=== PATIENT | female | born 1965 | race Caucasian/White ===

== ENCOUNTER 2018-03-02 07:44 | Day surgery (SDC) | payer OTHER ==
[2018-03-01 09:25] VITALS: BMI 25.0
[~2018-03-02 07:44] MED LIST: BUPIVACAINE HCL/PF 0.5% (5MG/ML) 10 ML VIAL IJ ONE; LIDOCAINE HCL 1%, 10 MG/ML (20ML VIAL) NR ONE
[2018-03-02] MEDS ORDERED: BUPIVACAINE HCL/PF 0.5% (5MG/ML) 10 ML VIAL ONE (08:55)
[2018-03-02] MEDS ORDERED: MIDAZOLAM HCL 2 MG/2 ML SINGLE DOSE VIAL ONE (09:07)
[2018-03-02] MEDS ORDERED: PROPOFOL 20 ML ONE ×3 (09:07)
[2018-03-02] MEDS ORDERED: ceFAZolin SODIUM 1 GM VIAL IVPB ONE (09:28)
[2018-03-02] MEDS ORDERED: LIDOCAINE HCL 1%, 10 MG/ML (20ML VIAL) INF ONE (09:41)
[2018-03-02] MEDS ORDERED: LIDOCAINE HCL 1%, 10 MG/ML (20ML VIAL) NR ONE (09:41)
[2018-03-02] MEDS ORDERED: BUPIVACAINE HCL/PF 0.5% (5MG/ML) 10 ML VIAL IJ ONE ×2 (09:41)
[2018-03-02] MEDS ORDERED: KETOROLAC TROMETHAMINE 30 MG/1 ML VIAL ONE (09:49)
[2018-03-02] MEDS ORDERED: ceFAZolin SODIUM 1 GM VIAL ONE (09:49)
--- NOTE | 2018-03-02 10:07 | OP ---
Operative Note - Note: Operative Date: 03/02/18 Pre-Operative Diagnosis: right Dequervain's Operation: right Dequervain's release, tendon sheath excision Post-Operative Diagnosis: Same as Pre-op Surgeon: Elver Wade Anesthesiologist/METALLURGICAL SPECIALIST: Gurmeet Macias Anesthesia: Local, MAC Specimens Removed: tendon sheath Estimated Blood Loss (mls): 0 Drains, Volume Out (mls): 0 Blood Volume Replaced (mls): 0 Fluid Volume Replaced (mls): 500 Operative Report Dictated: Yes
--- NOTE | 2018-03-02 11:13 | SPEC ---
DATE OF OPERATION: 03/02/2018 PREOPERATIVE DIAGNOSIS: Right De Quervains tenosynovitis. POSTOPERATIVE DIAGNOSIS: Right De Quervains tenosynovitis. PROCEDURE: Right De Quervains release and tendon sheath excision. SURGEON: Elver Wade M.D. AMBULANCE DRIVER: None. ANESTHESIA: MAC with local injection of 8 mL of 0.5% Marcaine and 1% Lidocaine mix. ANESTHESIOLOGIST: Gurmeet Macias MD DRAINS: None. COMPLICATIONS: None. BLOOD LOSS: None. BLOOD GIVEN: None. SPECIMEN: Tendon sheath, right wrist. FLUID REPLACEMENT: 500 mL. INDICATIONS: This patient is a 52-year-old female with a preoperative diagnosis of severe recurrent right De Quervain tenosynovitis. After understanding the potential risks, complications, alternatives and benefits of surgery versus nonsurgical treatment, the patient elected to undergo this procedure. PROCEDURE: Patient was brought to the operating room, peripheral IV placed, IV sedation given. One gram of IV Ancef was given. MAC anesthesia was induced. The tourniquet was applied to the right arm. The entire care was done under 3.8 loop magnification. The right upper extremity was prepped and draped in a sterile fashion. A longitudinal incision was marked out with a marking pen. A mix of 8 mL of 0.5% Marcaine, 1% Lidocaine were injected in and around the surgical area. The right upper extremity was then elevated, exsanguinated with an Esmarch bandage and the tourniquet inflated to 250 mmHg. A No. 15 scalpel blade was utilized to make a longitudinal incision. Subcutaneous hemostasis was achieved with a bipolar cautery. Dissection was done with a Littler scissors down to the first dorsal wrist compartment. Great care was taken to directly visualize and preserve all crossing sensory branches of the sensory nerve. Under direct visualization, the first dorsal wrist compartment was visualized and it was freed up from some adhesions with a [place] elevator. Next, a fresh No. 15 scalpel blade was utilized to open up the first dorsal wrist compartment, starting proximally and going distally both with the No. 15 scalpel blade and also with a Littler scissors. The anatomy was seen to have multiple slips of the abductor pollicis longus and the extensor pollicis brevis was in its own tendon tunnel. This was also released and the wall between the two excised. The roof of the tunnel was excised. This was all passed off the field as specimen. The volar lip of the first dorsal wrist compartment was preserved to prevent volar subluxation. The release was completed both distally and proximally in both compartments. I was able to bring out all slips through the wound with a Ragnell retractor and there were no obvious points of compression. The area was copiously irrigated and washed out, again explored and I didn't see any other abnormal tissue and therefore closure was begun. Undyed 4-0 Vicryl was used to close the deep dermal layer. Final skin reapproximation was done with a running subcuticular 4-0 Biosyn stitch. The area was then washed and dried, covered with Steri-Strips, 4 x 4's, fluffs between the fingers, Webril and Coban used to make a thumb spica Coban splint. The tourniquet was taken down after a total tourniquet time of 15 minutes. There were no complications during the case. The patient tolerated the procedure quite well and was brought to ambulatory recovery room in stable condition. Samantha [id number]
[2018-03-02 11:15] VITALS: BP 118/69; PULSE 89; TEMP 98.4
--- NOTE | 2018-03-03 17:21 | PATH ---
Surgical Pathology Report Patient Name: KELSEY ANDERSON [facility]. Rec. #: [id number] /Age/Gender: 1965 (Age: 52) / F Account: [id number] Location: [facility] Taken: 03/02/2018 Received: 03/02/2018 Reported: 03/03/2018 Physicians: Elver Wade M.D. Specimen(s) Received TENDON SHEATH RIGHT WRIST Clinical History Right Dequervain's Final Diagnosis WRIST, RIGHT, TENDON SHEATH, DE QUARVAIN'S RELEASE: BENIGN DENSE FIBROCONNECTIVE TISSUE. Electronically Signed Madie Swanson M.D. Gross Description Received in formalin labeled "tendon sheath right wrist," is a 1.2 x 0.8 x 0.2 cm aggregate of williamson soft tissue fragments. The specimen is entirely submitted in one cassette. DL/03/02/2018 saudi03/02/2018
== END 2018-03-02 11:15 | disposition home or self-care (01) ==
LOC: JASU-SURG 07:44
PROVIDERS: ATTEND Orthopaedic Surgery
PROC: 0LB50ZZ Excision of Right Lower Arm and Wrist Tendon, Open Approach (ICD-10-PCS; 2018-03-02)
PROC: 0LN50ZZ Release Right Lower Arm and Wrist Tendon, Open Approach (ICD-10-PCS; principal; 2018-03-02 09:00)
DX: M65.4 Radial styloid tenosynovitis [de Quervain] (principal)
CPT/HCPCS: 82962; 88304-TC

== ENCOUNTER 2021-07-23 05:50 | Day surgery (SDC) | payer OTHER ==
[2021-07-17 14:28] VITALS: BMI 23.5
[2021-07-23] MEDS ORDERED: MIDAZOLAM HCL 2 MG/2 ML SINGLE DOSE VIAL ONE (07:16)
[2021-07-23] MEDS ORDERED: PROPOFOL 20 ML ONE (07:16)
[2021-07-23] MEDS ORDERED: BUPIVACAINE HCL/PF 0.25% (2.5MG/ML) 10 ML VIAL ONE (07:22)
[2021-07-23] MEDS ORDERED: LIDOCAINE HCL 2% (20ML MULTI-DOSE VIAL) ONE (07:22)
[2021-07-23] MEDS ORDERED: ONDANSETRON 4 MG/2 ML VIAL ONE (08:09)
[2021-07-23 08:23] VITALS: TEMP 97
[2021-07-23 08:51] VITALS: BP 136/78; PULSE 86
[2021-07-23] MEDS ORDERED: SUCCINYLCHOLINE CHLORIDE 200 MG/10 ML SYRINGE ONE (09:15)
== END 2021-07-23 09:05 | disposition home or self-care (01) ==
LOC: FASU 05:50
PROVIDERS: ATTEND Orthopaedic Surgery Hand Surgery
PROC: 0LN60ZZ Release Left Lower Arm and Wrist Tendon, Open Approach (ICD-10-PCS; principal; 2021-07-23 07:50)
DX: M65.4 Radial styloid tenosynovitis [de Quervain] (principal)
CPT/HCPCS: 82962

== ENCOUNTER 2022-09-12 15:03 | Emergency (ER) | payer OTHER ==
[2022-09-12 15:20] VITALS: RESP 19; BMI 25.0
[2022-09-12] MEDS ORDERED: SODIUM CHLORIDE 0.9% 500 ML INFUS.BAG IV ONE (15:53)
[2022-09-12] MEDS ORDERED: METOCLOPRAMIDE HCL INJECTION 10 MG/2 ML VIAL IVPB ONE (15:53)
[2022-09-12] MEDS ORDERED: METOCLOPRAMIDE HCL INJECTION 10 MG/2 ML VIAL ONE (16:15)
[2022-09-12 17:04] LABS: BASO % 0.5 % (0-2.0); EOS % 1.1 % (0-4.5); HEMATOCRIT 38.5 % (32.4-45.2); HEMOGLOBIN 13.4 GM/dL (10.7-15.3); LYMPH % 25.9 % (8-40); MCH 29.4 pg (25.7-33.7); MCHC 34.8 g/dl (32.0-36.0); MEAN CELL VOLUME 84.5 fl (80-96); MEAN PLT VOLUME 9.8 fl (7.5-11.1); NEUT % 66.5 % (42.8-82.8); PLATELET COUNT 178 10^3/uL (134-434); RBC 4.56 M/mm3 (3.60-5.2); RDW 14.2 % (11.6-15.6); WHITE BLOOD COUNT 5.7 K/mm3 (4.0-10.0)
[2022-09-12 17:22] LABS: ALBUMIN 3.7 g/dl (3.4-5.0); BLOOD UREA NITROGEN 20.2 mg/dL (7-18); CALCIUM 9.2 mg/dL (8.5-10.1); MAGNESIUM 2.1 mg/dL (1.8-2.4)
[2022-09-12 17:27] LABS: BILIRUBIN,TOTAL 0.2 mg/dL (0.2-1)
[2022-09-12 19:59] VITALS: BP 127/84; PULSE 83; TEMP 98.1
== END 2022-09-12 20:10 | disposition home or self-care (01) ==
LOC: JER 15:03
PROC: 3E033GC Introduction of Other Therapeutic Substance into Peripheral Vein, Percutaneous Approach (ICD-10-PCS; principal; 2022-09-12)
DX: R51.9 Headache, unspecified (principal); M79.601 Pain in right arm; Z87.820 Personal history of traumatic brain injury
CPT/HCPCS: 36415; 70450-TC; 72125-TC; 80053; 83735; 85025; 99284-25